=== PATIENT | female | born 1995 | race Caucasian/White ===

== ENCOUNTER 2023-07-07 17:54 | Emergency (ER) | payer BC ==
[~2023-07-07] VITALS: Ht 167.6 cm; Wt 122.5 kg
[2023-07-07 18:18] VITALS: BP 117/68; PULSE 121; RESP 18; TEMP 99.7; O2SAT 96
[2023-07-07] MEDS ORDERED: IBUP-2213 PO (21:28)
[2023-07-07] MEDS ORDERED: FLUC150T64 PO (21:28)
[2023-07-07] MEDS: NACL 0.9% 1,000 ML IV ONE (21:30)
[2023-07-07 21:34] VITALS: BP 118/77
[2023-07-07 22:59] VITALS: PULSE 103; RESP 19; O2SAT 99
== END 2023-07-07 23:07 | disposition home or self-care (01) ==
LOC: MED 17:54
DX: R10.30 Lower abdominal pain, unspecified (principal); N89.8 Other specified noninflammatory disorders of vagina; E11.65 Type 2 diabetes mellitus with hyperglycemia
CPT/HCPCS: 81002; 81025; 87070; 87210; 96360; 99283; 99284; J7030